=== PATIENT | female | born 1955 | race Caucasian/White ===

== ENCOUNTER → 2016-11-19 | Outpatient (CLI) | payer OTHER ==
[~2016-11-19] MED LIST: CYAN500T42 PO; LEVA15HF2 INH; LIDOCAINE 2%, 20ML ONE; MV-M1TAB19 PO; OMNIPAQUE 300 MG/ML, 10ML VIAL ONE; SERT100T5 PO; SODIUM BICARBONATE 4.2%, 5ML ONE; TRAZ100T15 PO; TRIAMCINOLONE ACETONIDE 40 MG/ML, 1ML ONE
== END | disposition home or self-care (01) ==
LOC: RAD 12:03
PROVIDERS: ATTEND Physical Medicine & Rehabilitation
DX: M25.552 Pain in left hip (principal)
CPT/HCPCS: 77002; J3301; J3490; Q9967

== ENCOUNTER → 2017-08-12 | Outpatient (CLI) | payer OTHER ==
[~2017-08-12] MED LIST changes: -LEVA15HF2 INH; +LEVA15HF4 INH; -LIDOCAINE 2%, 20ML ONE; -OMNIPAQUE 300 MG/ML, 10ML VIAL ONE; -SODIUM BICARBONATE 4.2%, 5ML ONE; -TRIAMCINOLONE ACETONIDE 40 MG/ML, 1ML ONE
== END | disposition home or self-care (01) ==
LOC: CFH 13:50
PROVIDERS: ATTEND Family Medicine
DX: Z12.31 Encounter for screening mammogram for malignant neoplasm of breast (principal)
CPT/HCPCS: G0202

== ENCOUNTER → 2018-08-13 | Outpatient (CLI) | payer OTHER ==
[~2018-08-13] MED LIST changes: +TRAZ-137 PO; -TRAZ100T15 PO
== END | disposition home or self-care (01) ==
LOC: CFH 13:47
PROVIDERS: ATTEND Family Medicine
DX: Z12.31 Encounter for screening mammogram for malignant neoplasm of breast (principal)
CPT/HCPCS: 77067

== ENCOUNTER → 2019-08-20 | Outpatient (CLI) | payer OTHER ==
[~2019-08-20] MED LIST changes: +SERT100T32 PO; -SERT100T5 PO
== END | disposition home or self-care (01) ==
LOC: CFH 13:14
PROVIDERS: ATTEND Family Medicine
DX: Z12.31 Encounter for screening mammogram for malignant neoplasm of breast (principal)
CPT/HCPCS: 77067

== ENCOUNTER → 2020-08-22 | Outpatient (CLI) | payer OTHER ==
[~2020-08-22] MED LIST changes: -TRAZ-137 PO; +TRAZ-175 PO
== END | disposition home or self-care (01) ==
LOC: CFH 14:05
PROVIDERS: ATTEND Family Medicine
DX: Z12.31 Encounter for screening mammogram for malignant neoplasm of breast (principal)
CPT/HCPCS: 77067

== ENCOUNTER 2020-11-15 08:09 | Emergency (ER) | payer OTHER ==
[~2020-11-15] VITALS: Ht 165.1 cm; Wt 98.0 kg
[~2020-11-15 08:09] MED LIST changes: -MV-M1TAB19 PO; +MV-M1TAB74 PO
[2020-11-15] MEDS ORDERED: SODIUM CHLORIDE FLUSH 10ML SYR IVF ONE (09:00)
[2020-11-15] MEDS ORDERED: ONDANSETRON 2MG/ML, 2ML IVPush ONE (09:00)
[2020-11-15] MEDS ORDERED: ONDANSETRON 2MG/ML, 2ML ONE (09:15)
[2020-11-15] MEDS ORDERED: MORPHINE SULFATE 4 MG/ML, 1ML ONE ×2 (09:15→10:33)
[2020-11-15] MEDS: MORPHINE SULFATE 4 MG/ML, 1ML IVPush PRN ×2 (09:17→10:37)
[2020-11-15 09:20] LABS: MICROSCOPIC AUTO
[2020-11-15] MEDS ORDERED: SODIUM CHLORIDE 0.9% 1,000 ML IV ONE (09:30)
[2020-11-15 10:04] LABS: BASOPHILS % (AUTO) 1 % (0-1); EOSINOPHILS % (AUTO) 0 % (1-7); LYMPHOCYTES % (AUTO) 8 % (22-44); MD NO; MEAN CORPUSCULAR HEMOGLOBIN 24.8 pg (27.0-34.8); MEAN CORPUSCULAR HGB CONC 31.9 g/dL (32.4-35.8); MEAN PLATELET VOLUME 8.3 fL (7.4-10.4); MONOCYTES % (AUTO) 4 % (2-9); NEUTROPHILS % (AUTO) 88 % (42-75); PLATELET COUNT 233 x10^3/uL (130-400); RED BLOOD COUNT 5.35 x10^6/uL (3.82-5.3); RED CELL DISTRIBUTION WIDTH 21.8 % (9.6-15.2)
[2020-11-15 10:12] LABS: ALANINE AMINOTRANSFERASE 16 U/L (12-78); ANION GAP 9 mmol/L (5-15); CALCIUM 10.1 mg/dL (8.5-10.1); CHLORIDE 107 mmol/L (98-107); CREATININE 1.04 mg/dL (0.55-1.02)
[2020-11-15 10:14] LABS: ALKALINE PHOSPHATASE 100 U/L (45-117); BILIRUBIN,TOTAL 0.4 mg/dL (0.2-1.0); TOTAL PROTEIN 7.6 g/dL (6.4-8.2)
--- NOTE | 2020-11-15 10:30 | NUR ---
CT RESULTED, MD AWARE. CHART UP FOR RECHECK
[2020-11-15] MEDS ORDERED: KETOROLAC 30 MG/1 ML ONE (10:33)
[2020-11-15 10:40] VITALS: BP 140/62
[2020-11-15] MEDS ORDERED: KETOROLAC 30 MG/1 ML IVPush ONE (11:00)
--- NOTE | 2020-11-15 11:00 | NUR ---
DR RICHARDSON AT BS. POC DISCUSSED, QUESTIONS ADDRESSED.
--- NOTE | 2020-11-15 11:44 | NUR ---
Patient given discharge instructions and they have confirmed that they understand the instructions. Patient ambulatory with steady gait.
== END 2020-11-15 11:46 | disposition home or self-care (01) ==
LOC: ED 08:26
DX: N20.1 Calculus of ureter (principal); R11.2 Nausea with vomiting, unspecified; R10.32 Left lower quadrant pain
CPT/HCPCS: 36415; 74176; 80053; 81001; 83690; 85025; 96361; 96374; 96375; 96376; 99284; J1885; J2270; J2405; J7030